=== PATIENT | male | born 1970 | race Caucasian/White ===

== ENCOUNTER 2017-06-30 15:56 | Emergency (ER) | payer MEDICAID ==
[2017-06-30 21:51] VITALS: BP 140/82
== END 2017-06-30 21:51 | disposition home or self-care (01) ==
LOC: ED 15:56
DX: M54.5 Low back pain (principal); I10 Essential (primary) hypertension; E11.65 Type 2 diabetes mellitus with hyperglycemia; F17.200 Nicotine dependence, unspecified, uncomplicated; W01.10XA Fall on same level from slipping, tripping and stumbling with subsequent striking against unspecified object, initial encounter; Y93.89 Activity, other specified; Y92.89 Other specified places as the place of occurrence of the external cause; Y99.8 Other external cause status
CPT/HCPCS: 82962; 99406; J2270; Q0162